=== PATIENT | male | born 1950 ===

== ENCOUNTER 2021-05-26 13:39 | Outpatient (REF) | payer OTHER, SELFPAY ==
[2021-05-26 15:02] LABS: Syphilis Screen Nonreactive (Nonreactive)
[2021-05-26 15:19] LABS: Folate 10.8 ng/mL (> or = 4.0); Vitamin B12 319 pg/mL (200-900)
[2021-05-27 13:37] LABS: Lyme Abs Screen <0.90 index
== END 2021-05-26 13:40 | disposition home or self-care (01) ==
LOC: HO.LAB 13:39
PROVIDERS: PCP Internal Medicine; Visit Provider Psychiatry & Neurology Neurology
DX: G30.9 Alzheimer's disease, unspecified (principal)
CPT/HCPCS: 36415; 82607; 82746; 86617; 86618; 86780

== ENCOUNTER → 2023-05-08 12:58 | Outpatient (BNVA) | payer OTHER, SELFPAY | PROVIDERS: PCP Internal Medicine; Visit Provider Psychiatry & Neurology Neurology ==

== ENCOUNTER 2023-08-17 08:26 | Outpatient (AMB) | payer OTHER, SELFPAY ==
--- NOTE | 2023-08-17 08:36 | A.OFFVIS_ITS ---
Intake Vital Signs 08/17/23 08:41 Weight 162 lb 6 oz BP 110/58 L Blood Pressure Location Lt brachial Position Sitting Pulse 93 Pulse Source Pulse Oximeter Pulse Oximetry (%) 98 Oxygen Delivery Method Room Air Intake Visit Reasons: 2m f/u Memory Issues/Tremors - Ok per MD Intake Note: F/U Memory and Tremors [place] Tanner Required: No Allergies ibuprofen [From Advil] Allergy (Severe, Verified 08/17/23 08:37) swallowing alcohol Allergy (Unknown, Verified 08/17/23 08:37) Unknown aspirin [Percodan] Allergy (Unknown, Verified 08/17/23 08:37) Unknown oxycodone [Percodan] Allergy (Unknown, Verified 08/17/23 08:37) Unknown Medication List - Last Reconciled 08/17/23 by Darling Heart MD atorvastatin (Lipitor) 20 mg PO DAILY bupropion HCl (Wellbutrin XL) 150 mg PO QAM carbidopa-levodopa 25-100 mg 0.5 tabs PO TID cholecalciferol (vitamin D3) (Vitamin D3) 25 mcg PO DAILY donepezil 10 mg PO DAILY levothyroxine 25 mcg PO DAILY nitroglycerin 0.4 mg sublingual Q5M PRN polyethylene glycol 3350 (Miralax) 17 grams PO DAILY tacrolimus 0.1% 1 appl topical BID HPI HPI Comments History of Present Illness Details 72y/o right handed male comes for follow up of cognitive impairment. He started wellbutrin 1 month ago- his tremors are worse.It helps his anxiety. He did not try sinemet yet. His memory is better He is able to follow instructions in his [employer] classes. Previous history- He is transferring his care from Dr. Arriola. He started having short term memory issues 3-4 years ago. He had a neuropsyhc at that which was c/w Mild cognitive impairment. He was started on donepezil 10mg qd. He could not tolerate galantamine- developed tremors. He also started with leg tremors which was thought to be due to galantamine. The tremors did not resolve when he was switched to donepezil. The tremors are mostly in his LE. now he has some tremors and mostly in his right. He The tremors are mostly at rest. His speech is softer, drools, handwriting is worse, has difficulty dressing . he has difficulty with fine motor coordination. He has rouble getting in the bed. His walking is slower, stooped. No recent falls. He recently had an episode of dizziness ( spinning)and fell( around 10 PM). No loss of consciousness. since then he feels like he is not right in space.He thinks he has sinus issues and is causing his vertigo. He takes miralax for constipation. No double vision. His recent MRI - mild white matter hyperintense intensities. Neuropsych eval- [facility] He had word finding difficulty.He has vivid dreams and acts out for over 4 years . He has mild depression and anxiety [facility] Medical History (Updated 08/17/23 @ 09:17 by Darling Heart MD) Anxiety REM behavioral disorder Parkinsonism MCI (mild cognitive impairment) CAD (coronary artery disease) Constipation IBS (irritable bowel syndrome) Combined hyperlipidemia Hypothyroidism Hernia Surgical History H/O heart artery stent Family History Father Diabetes Stomach cancer Heart disease Mother Dementia Sister Diabetes Social History Alcohol intake: never Patient Tobacco Use Status: Never used Tobacco Use of substances other than those prescribed or required for medical reasons: No Physical Exam Vital Signs: Last Vital Signs Pulse 93 08/17/23 08:41 BP 110/58 L 08/17/23 08:41 Pulse Ox 98 08/17/23 08:41 Oxygen Delivery Method Room Air 08/17/23 08:41 Const Orientation/consciousness: patient oriented x3 Neuro Other: moderately decreased facial expression decreased blink Right LE rest tremors Cog wheel rigidity - 3+ right , left 2 + FFM and foot taps decreased yanni R>L Hypophonia Gait- stooped , small steps , decreased arm swings yanni R>L General: patient oriented x3, moves all extremities and no focal motor deficits Cranial nerves: Yes Bilaterally intact EOM present, Yes Nystagmus not present, Yes Normal facial strength present and Yes Midline tongue present Gait exam (Neuro): Other gait observations present Motor exam (neuro): 5/5 motor strength present throughout Deep tendon reflexes (DTR's): Right triceps reflex intensity grade: 1+, Left triceps reflex intensity grade: 1+, Rt Biceps (C5, C6): 1+, Left biceps reflex intensity grade: 1+, Right brachioradialis reflex intensity grade: 1+, Left brachioradialis reflex intensity grade: 1+, Right patellar reflex intensity grade: 1+ and Left patellar reflex intensity grade: 1+ Coordination: [id number] test normal Psych Speech and movement: Slowed movement present (Neuro) Affect: Anxious affect present Assessment & Plan Assessment & Plan (1) Parkinsonism: Code(s): G20 - Parkinson's disease (2) REM behavioral disorder: Code(s): G47.52 - REM sleep behavior disorder (3) MCI (mild cognitive impairment): Code(s): G31.84 - Mild cognitive impairment of uncertain or unknown etiology Plan Reviewed his neuropsyhc evals and Dr. Arriola s notes. Retrial melatonin- 3-10 mgqhs I will trial him on sinemet 25/100 1/2 tab tid ( never tried it after his last visit) HANG scan Increase donepezil 10mg qd Exposure to agent orange [facility] Orders: Orders DaTscan Today G20 - Parkinson's disease Referrals Psychiatry Referral F41.9 - Anxiety disorder, unspecified Medications: Changed From donepezil 5 mg PO DAILY To donepezil 10 mg PO DAILY 30 tabs 1RF Coding Level of Care Code Est Pt Level 4 (00260) Diagnoses Parkinsonism G20 REM behavioral disorder G47.52 MCI (mild cognitive impairment) G31.84
[2023-08-17 08:41] VITALS: BP 110/58; PULSE 93; O2SAT 98
== END 2023-08-17 09:24 | disposition home or self-care (01) ==
PROVIDERS: PCP Internal Medicine; Visit Provider Psychiatry & Neurology Neurology
DX: G20 Parkinson's disease (principal); G47.52 REM sleep behavior disorder; G31.84 Mild cognitive impairment of uncertain or unknown etiology
CPT/HCPCS: 99214

== ENCOUNTER → 2023-08-17 08:26 | Outpatient (BNVA) | payer OTHER, SELFPAY | PROVIDERS: PCP Internal Medicine; Visit Provider Psychiatry & Neurology Neurology | DX: G20 Parkinson's disease (principal); G47.52 REM sleep behavior disorder ==

== ENCOUNTER 2023-12-12 13:53 | Outpatient (AMB) | payer OTHER, SELFPAY ==
--- NOTE | 2023-12-12 13:56 | A.OFFVIS_ITS ---
Intake Vital Signs 12/12/23 13:57 Height 5 ft 4 in Weight 162 lb 6 oz BMI 27.9 BP 108/72 Blood Pressure Location Rt brachial Position Sitting Respiration 17 Pulse 83 Pulse Source Pulse Oximeter Pulse Oximetry (%) 98 Oxygen Delivery Method Room Air Intake Visit Reasons: 6m f/u Memory Issues/Tremors - Confirmed Intake Note: Pt presents to the office for a 6 month follow up for tremors and memory disturbances. 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 Required: No Allergies ibuprofen [From Advil] Allergy (Severe, Verified 12/12/23 13:57) swallowing alcohol Allergy (Unknown, Verified 12/12/23 13:57) Unknown aspirin [Percodan] Allergy (Unknown, Verified 12/12/23 13:57) Unknown oxycodone [Percodan] Allergy (Unknown, Verified 12/12/23 13:57) Unknown Medication List - Last Reconciled 12/12/23 by Darling Heart MD atorvastatin (Lipitor) 20 mg PO DAILY bupropion HCl (Wellbutrin XL) 150 mg PO QAM carbidopa-levodopa 25-100 mg 0.5 tabs PO TID cholecalciferol (vitamin D3) (Vitamin D3) 25 mcg PO DAILY donepezil 10 mg PO DAILY levothyroxine 25 mcg PO DAILY nitroglycerin 0.4 mg sublingual Q5M PRN polyethylene glycol 3350 (Miralax) 17 grams PO DAILY tacrolimus 0.1% 1 appl topical BID HPI HPI Comments History of Present Illness Details 73y/o right handed male comes for follow up of cognitive impairment. His feels his tremors are worse. His hand coordination is worse. He is on wellbutrin and .It helps his anxiety. He did not try sinemet yet. His memory is same. He is taking parkinsons classes at [facility] He is able to follow instructions in his [employer] classes. His motor coordination like getting out of car is difficult. His reports that he is hypersexual - wanting to have sex often. Previous history- He is transferring his care from Dr. Arriola. He started having short term memory issues 3-4 years ago. He had a neuropsyhc at that which was c/w Mild cognitive impairment. He was started on donepezil 10mg qd. He could not tolerate galantamine- developed tremors. He also started with leg tremors which was thought to be due to galantamine. The tremors did not resolve when he was switched to donepezil. His recent MRI - mild white matter hyperintense intensities. Neuropsych eval- [facility] Medical History (Updated 12/12/23 @ 14:20 by Darling Heart MD) Parkinson's disease without dyskinesia, without mention of fluctuations Anxiety REM behavioral disorder Parkinsonism MCI (mild cognitive impairment) CAD (coronary artery disease) Constipation IBS (irritable bowel syndrome) Combined hyperlipidemia Hypothyroidism Hernia Surgical History H/O heart artery stent Family History Father Diabetes Stomach cancer Heart disease Mother Dementia Sister Diabetes Social History Alcohol intake: never Patient Tobacco Use Status: Never used Tobacco Physical Exam Vital Signs: Last Vital Signs Pulse 83 12/12/23 13:57 Resp 17 12/12/23 13:57 BP 108/72 12/12/23 13:57 Pulse Ox 98 12/12/23 13:57 Oxygen Delivery Method Room Air 12/12/23 13:57 BMI result Body Mass Index 27.9 Const Orientation/consciousness: patient oriented x3 Neuro Other: moderately decreased facial expression decreased blink Right LE rest tremors Cog wheel rigidity - 3+ right , left 2 + FFM and foot taps decreased yanni R>L Hypophonia Gait- stooped , small steps , decreased arm swings yanni R>L General: patient oriented x3, moves all extremities and no focal motor deficits Cranial nerves: Yes Bilaterally intact EOM present, Yes Nystagmus not present, Yes Normal facial strength present and Yes Midline tongue present Gait exam (Neuro): Other gait observations present Motor exam (neuro): 5/5 motor strength present throughout Coordination: [id number] test normal Psych Speech and movement: Slowed movement present (Neuro) Affect: Anxious affect present Assessment & Plan Assessment & Plan (1) Parkinsonism: Code(s): G20 - Parkinson's disease (2) REM behavioral disorder: Code(s): G47.52 - REM sleep behavior disorder (3) MCI (mild cognitive impairment): Code(s): G31.84 - Mild cognitive impairment of uncertain or unknown etiology Plan Reviewed his neuropsyhc josé miguel and Dr. Arriola s notes. Melatonin- 3-10 mgqhs Increase sinemet 25/100 1 tab tid ( never tried it after his last visit) HANG scan - decreased uptake in yanni basal ganglia c/w parkinsonism donepezil 10mg qd Exposure to agent orange [facility] Orders: Orders OT Evaluation and Treatment Today G20.A1 - Parkinson's disease without dyskinesia, without mention of fluctuations Medications: New [four pronged cane] As directed 1 ea 0RF parkinsons G20.A1 - Parkinson's disease without dyskinesia, without mention of fluctuations Changed From carbidopa-levodopa 25-100 mg 0.5 tabs PO TID 90 tabs 2RF To carbidopa-levodopa 25-100 mg 1 tab PO TID 90 tabs 2RF Coding Level of Care Code Est Pt Level 4 (95551) Diagnoses Parkinsonism G20 REM behavioral disorder G47.52 MCI (mild cognitive impairment) G31.84
[2023-12-12 13:57] VITALS: BP 108/72; PULSE 83; RESP 17; O2SAT 98; BMI 27.9
== END 2023-12-12 14:35 | disposition home or self-care (01) ==
PROVIDERS: PCP Internal Medicine; Visit Provider Psychiatry & Neurology Neurology
DX: G20.C Parkinsonism, unspecified (principal); G47.52 REM sleep behavior disorder; G31.84 Mild cognitive impairment of uncertain or unknown etiology
CPT/HCPCS: 99214

== ENCOUNTER → 2023-12-12 13:53 | Outpatient (BNVA) | payer OTHER, SELFPAY | PROVIDERS: PCP Internal Medicine; Visit Provider Psychiatry & Neurology Neurology | DX: G47.52 REM sleep behavior disorder (principal); F41.9 Anxiety disorder, unspecified; G31.84 Mild cognitive impairment of uncertain or unknown etiology ==

== ENCOUNTER 2024-04-16 15:49 | Outpatient (AMB) | payer OTHER, SELFPAY ==
--- NOTE | 2024-04-16 15:51 | MHC.OFFVIS ---
Vital Signs 04/16/24 15:52 Height 5 ft 4 in Weight 157 lb 6 oz BMI 27.0 BP 110/70 Blood Pressure Location Rt brachial Position Sitting Respiration 16 Pulse 78 Pulse Source Pulse Oximeter Pulse Oximetry (%) 98 Oxygen Delivery Method Room Air Intake Visit Reasons: 4 mo f/u - LVM w/add Intake Note: Pt presents for a 4 month follow up for MCI. [employer] T[employer] Helper Required: No Allergies ibuprofen [From Advil] Allergy (Severe, Verified 04/16/24 15:52) swallowing alcohol Allergy (Unknown, Verified 04/16/24 15:52) Unknown aspirin [Percodan] Allergy (Unknown, Verified 04/16/24 15:52) Unknown oxycodone [Percodan] Allergy (Unknown, Verified 04/16/24 15:52) Unknown Medication List - Last Reconciled 04/16/24 by Darling Heart MD bupropion HCl XL (Wellbutrin XL) 150 mg PO QAM carbidopa-levodopa 25-100 mg 1 tab PO TID cholecalciferol (vitamin D3) (Vitamin D3) 25 mcg PO DAILY donepezil 10 mg PO DAILY [four pronged cane As directed] levothyroxine 25 mcg PO DAILY nitroglycerin 0.4 mg sublingual Q5M PRN polyethylene glycol 3350 (Miralax) 17 grams PO DAILY rosuvastatin 5 mg PO DAILY tacrolimus 0.1% 1 appl topical BID HPI Comments Details: 73y/o right handed male comes for follow up of cognitive impairment. His cognition is stable. He feel he is not motivated carbidopa/levodopa has helped with tremors. He still has tremors when he is anxious His memory is same. He is taking parkinsons classes at [facility] He is able to follow instructions in his [employer] classes. Previous history- He is transferring his care from Dr. Arriola. He started having short term memory issues 3-4 years ago. He had a neuropsyhc at that which was c/w Mild cognitive impairment. He was started on donepezil 10mg qd. He could not tolerate galantamine- developed tremors. He also started with leg tremors which was thought to be due to galantamine. The tremors did not resolve when he was switched to donepezil. His recent MRI - mild white matter hyperintense intensities. Neuropsych eval- [facility] Medical History Parkinson's disease without dyskinesia, without mention of fluctuations Anxiety REM behavioral disorder Parkinsonism MCI (mild cognitive impairment) CAD (coronary artery disease) Constipation IBS (irritable bowel syndrome) Combined hyperlipidemia Hypothyroidism Hernia Surgical History H/O heart artery stent Family History Father Diabetes Stomach cancer Heart disease Mother Dementia Sister Diabetes Social History Alcohol intake: never Patient Tobacco Use Status: Never used Tobacco Physical Exam Vital Signs: Last Vital Signs Pulse 78 04/16/24 15:52 Resp 16 04/16/24 15:52 BP 110/70 04/16/24 15:52 Pulse Ox 98 04/16/24 15:52 Oxygen Delivery Method Room Air 04/16/24 15:52 BMI result Body Mass Index 27.0 Const Orientation/consciousness: patient oriented x3 Neuro Other: moderately decreased facial expression decreased blink Right LE rest tremors Cog wheel rigidity - 3+ right , left 2 + FFM and foot taps decreased yanni R>L Hypophonia Gait- stooped , small steps , decreased arm swings yanni R>L General: patient oriented x3, moves all extremities and no focal motor deficits Cranial nerves: Yes Bilaterally intact EOM present, Yes Nystagmus not present, Yes Normal facial strength present and Yes Midline tongue present Gait exam (Neuro): Other gait observations present Motor exam (neuro): 5/5 motor strength present throughout Coordination: [id number] test normal Psych Speech and movement: Slowed movement present (Neuro) Affect: Anxious affect present Assessment & Plan Assessment & Plan (1) Parkinsonism: Code(s): G20 - Parkinson's disease Category: Medical (2) REM behavioral disorder: Code(s): G47.52 - REM sleep behavior disorder Category: Medical (3) MCI (mild cognitive impairment): Code(s): G31.84 - Mild cognitive impairment of uncertain or unknown etiology Category: Medical (4) Parkinson's disease without dyskinesia, without mention of fluctuations: Code(s): G20.A1 - Parkinson's disease without dyskinesia, without mention of fluctuations Category: Medical Plan Melatonin- 3-10 mgqhs sinemet 25/100 1 tab tid HANG scan - decreased uptake in yanni basal ganglia c/w parkinsonism donepezil 10mg qd Exposure to agent orange [facility] Orders: Orders PT Evaluation and Treatment Today G20 - Parkinson's disease Coding Level of Care Code Est Pt Level 4 (68420) Diagnoses Parkinsonism G20 REM behavioral disorder G47.52 MCI (mild cognitive impairment) G31.84 Parkinson's disease without dyskinesia, without mention of fluctuations G20.A1
[2024-04-16 15:52] VITALS: BP 110/70; PULSE 78; RESP 16; O2SAT 98; BMI 27.0
== END 2024-04-16 16:20 | disposition home or self-care (01) ==
PROVIDERS: PCP Internal Medicine; Visit Provider Psychiatry & Neurology Neurology
DX: G20.A1 Parkinson's disease without dyskinesia, without mention of fluctuations (principal); G47.52 REM sleep behavior disorder
CPT/HCPCS: 99214

== ENCOUNTER → 2024-04-16 15:49 | Outpatient (BNVA) | payer OTHER, SELFPAY | PROVIDERS: PCP Internal Medicine; Visit Provider Psychiatry & Neurology Neurology ==

== ENCOUNTER 2024-10-15 12:56 | Outpatient (AMB) | payer OTHER, SELFPAY ==
[2024-10-15 13:04] VITALS: BP 124/78; BMI 26.8
--- NOTE | 2024-10-15 13:04 | A.OFFVIS_ITS ---
Vital Signs 10/15/24 13:04 Height 5 ft 4 in Weight 156 lb BMI 26.8 BP 124/78 Blood Pressure Location Rt brachial Position Sitting Intake Visit Reasons: 6mon follow up Intake Note: Patient presents for follow up appointment Allergies ibuprofen [From Advil] Allergy (Severe, Verified 10/15/24 13:06) swallowing alcohol Allergy (Unknown, Verified 10/15/24 13:06) Unknown aspirin [Percodan] Allergy (Unknown, Verified 10/15/24 13:06) Unknown oxycodone [Percodan] Allergy (Unknown, Verified 10/15/24 13:06) Unknown Medication List - Last Reconciled 10/15/24 by Darling Heart MD bupropion HCl XL (Wellbutrin XL) 150 mg PO QAM carbidopa-levodopa 25-100 mg 1 tab PO TID cholecalciferol (vitamin D3) (Vitamin D3) 25 mcg PO DAILY donepezil 10 mg PO DAILY [four pronged cane As directed] levothyroxine 25 mcg PO DAILY nitroglycerin 0.4 mg sublingual Q5M PRN polyethylene glycol 3350 (Miralax) 17 grams PO DAILY rosuvastatin 5 mg PO DAILY tacrolimus 0.1% 1 appl topical BID HPI Comments Details: 74y/o right handed male comes for follow up of cognitive impairment. His cognition fluctuates.He reports some word finding difficulty. He feel he is not motivated carbidopa/levodopa has helped with tremors. He still has tremors when he is anxious He is taking parkinsons classes at [facility] He is able to follow instructions in his [employer] classes. Previous history- He is transferring his care from Dr. Arriola. He started having short term memory issues 3-4 years ago. He had a neuropsyhc at that which was c/w Mild cognitive impairment. He was started on donepezil 10mg qd. He could not tolerate galantamine- developed tremors. He also started with leg tremors which was thought to be due to galantamine. The tremors did not resolve when he was switched to donepezil. His recent MRI - mild white matter hyperintense intensities. Neuropsych eval- [facility] Medical History Parkinson's disease without dyskinesia, without mention of fluctuations Anxiety REM behavioral disorder Parkinsonism MCI (mild cognitive impairment) CAD (coronary artery disease) Constipation IBS (irritable bowel syndrome) Combined hyperlipidemia Hypothyroidism Hernia Surgical History H/O heart artery stent Family History Father Diabetes Stomach cancer Heart disease Mother Dementia Sister Diabetes Social History Alcohol intake: never Patient Tobacco Use Status: Never used Tobacco Physical Exam Vital Signs: Last Vital Signs BP 124/78 10/15/24 13:04 BMI result Body Mass Index 26.8 Const Orientation/consciousness: patient oriented x3 Neuro Other: mild decreased facial expression decreased blink Jose Raul LE rest tremors Cog wheel rigidity - 3+ right , left 2 + FFM and foot taps decreased jose raul R>L speech - normal Gait- stooped , small steps , decreased arm swings jose raul R>L General: patient oriented x3, moves all extremities and no focal motor deficits Cranial nerves: Yes Bilaterally intact EOM present, Yes Nystagmus not present, Yes Normal facial strength present and Yes Midline tongue present Gait exam (Neuro): Other gait observations present Motor exam (neuro): 5/5 motor strength present throughout Coordination: [id number] test normal Psych Speech and movement: Slowed movement present (Neuro) Affect: Anxious affect present Assessment & Plan Assessment & Plan (1) Parkinsonism: Code(s): G20 - Parkinson's disease Category: Medical Qualifiers: 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 Qualified Code(s): 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 (2) REM behavioral disorder: Code(s): G47.52 - REM sleep behavior disorder Category: Medical (3) MCI (mild cognitive impairment): Code(s): G31.84 - Mild cognitive impairment of uncertain or unknown etiology Category: Medical (4) Parkinson's disease without dyskinesia, without mention of fluctuations: Code(s): G20.A1 - Parkinson's disease without dyskinesia, without mention of fluctuations Category: Medical Plan Melatonin- 3-10 mgqhs sinemet 25/100 1 tab tid HANG scan - decreased uptake in jose raul basal ganglia c/w parkinsonism donepezil 10mg qd He has h/o exposure to Agent [place] Coding Level of Care Code Est Pt Level 4 (45620) Complex EM visit Add On G2211 Diagnoses 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
== END 2024-10-15 13:32 | disposition home or self-care (01) ==
PROVIDERS: PCP Internal Medicine; Visit Provider Psychiatry & Neurology Neurology
DX: G21.2 Secondary parkinsonism due to other external agents (principal); G47.52 REM sleep behavior disorder; G31.84 Mild cognitive impairment of uncertain or unknown etiology; G20.A1 Parkinson's disease without dyskinesia, without mention of fluctuations
CPT/HCPCS: 99214; G2211

== ENCOUNTER → 2024-10-15 12:56 | Outpatient (BNVA) | payer OTHER, SELFPAY | PROVIDERS: PCP Internal Medicine; Visit Provider Psychiatry & Neurology Neurology ==

== ENCOUNTER 2025-05-09 10:16 | Outpatient (AMB) | payer OTHER, SELFPAY ==
--- NOTE | 2025-05-09 10:22 | A.OFFVIS_ITS ---
Vital Signs 05/09/25 10:23 Height 5 ft 4 in Weight 148 lb 8 oz BMI 25.5 BP 98/58 L Blood Pressure Location Rt brachial Position Sitting Pulse 76 Pulse Source Pulse Oximeter Pulse Oximetry (%) 95 Oxygen Delivery Method Room Air Intake Visit Reasons: follow up RESCHED Intake Note: Patient presents for follow up parkinson's Livestock Counter Required: No Accompanied by: Spouse Allergies ibuprofen [From Advil] Allergy (Severe, Verified 05/09/25 10:29) swallowing alcohol Allergy (Unknown, Verified 05/09/25 10:29) Unknown aspirin [Percodan] Allergy (Unknown, Verified 05/09/25 10:29) Unknown oxycodone [Percodan] Allergy (Unknown, Verified 05/09/25 10:29) Unknown Medication List - Last Reconciled 05/09/25 by Darling Heart MD bupropion HCl XL (Wellbutrin XL) 150 mg PO QAM carbidopa-levodopa 25-100 mg 1 tab PO TID cholecalciferol (vitamin D3) (Vitamin D3) 25 mcg PO DAILY donepezil 10 mg PO DAILY [four pronged cane As directed] levothyroxine 25 mcg PO DAILY nitroglycerin 0.4 mg sublingual Q5M PRN polyethylene glycol 3350 (Miralax) 17 grams PO DAILY rosuvastatin 5 mg PO DAILY HPI Comments Details: 74y/o right handed male comes for follow up of cognitive impairment. His feels he is worse . His slower, his gait and posture has worsened. Tremors are same. He has poor depth perception . No falls Cognition is worse His cognition fluctuates.He reports some word finding difficulty.He has trouble using his computer carbidopa/levodopa has helped with tremors. He still has tremors when he is anxious He is taking parkinsons classes at [facility] He is able to follow instructions in his [employer] classes. Previous history- He is transferring his care from Dr. Arriola. He started having short term memory issues 3-4 years ago. He had a neuropsyhc at that which was c/w Mild cognitive impairment. He was started on donepezil 10mg qd. He could not tolerate galantamine- developed tremors. He also started with leg tremors which was thought to be due to galantamine. The tremors did not resolve when he was switched to donepezil. His recent MRI - mild white matter hyperintense intensities. [facility]psych eval- [facility] Medical History Parkinson's disease without dyskinesia, without mention of fluctuations Anxiety REM behavioral disorder Parkinsonism MCI (mild cognitive impairment) CAD (coronary artery disease) Constipation IBS (irritable bowel syndrome) Combined hyperlipidemia Hypothyroidism Hernia Surgical History Hx of cataract surgery H/O heart artery stent Family History Father Diabetes Stomach cancer Heart disease Mother Dementia Sister Diabetes Social History Alcohol intake: never Patient Tobacco Use Status: Never used Tobacco Physical Exam Vital Signs: Last Vital Signs Pulse 76 05/09/25 10:23 BP 98/58 L 05/09/25 10:23 Pulse Ox 95 05/09/25 10:23 Oxygen Delivery Method Room Air 05/09/25 10:23 BMI result Body Mass Index 25.5 Const Orientation/consciousness: patient oriented x3 Neuro Other: mild decreased facial expression decreased blink Jose Raul LE rest tremors Cog wheel rigidity - 3+ right , left 2 + FFM and foot taps decreased jose raul R>L speech - normal Gait- stooped , small steps , decreased arm swings jose raul R>L General: patient oriented x3, moves all extremities and no focal motor deficits Cranial nerves: Yes Bilaterally intact EOM present, Yes Nystagmus not present, Yes Normal facial strength present and Yes Midline tongue present Gait exam (Neuro): Other gait observations present Motor exam (neuro): 5/5 motor strength present throughout Coordination: [id number] test normal Psych Speech and movement: Slowed movement present (Neuro) Affect: Anxious affect present Assessment & Plan Assessment & Plan (1) 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 Code(s): G20 - Parkinson's disease Category: Medical Qualifiers: 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 Qualified Code(s): 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 (2) REM behavioral disorder: Code(s): G47.52 - REM sleep behavior disorder Category: Medical (3) MCI (mild cognitive impairment): Code(s): G31.84 - Mild cognitive impairment of uncertain or unknown etiology Category: Medical (4) Parkinson's disease without dyskinesia, without mention of fluctuations: Code(s): G20.A1 - Parkinson's disease without dyskinesia, without mention of fluctuations Category: Medical Qualifiers: Fluctuating manifestations: without fluctuating manifestations Qualified Code(s): G20.A1 - Parkinson's disease without dyskinesia, without mention of fluctuations Plan Melatonin- 3-10 mgqhs Increase sinemet 25/100 1 tab qid HANG scan - decreased uptake in jose raul basal ganglia c/w parkinsonism donepezil 10mg qd He has h/o exposure to Trichloro ethylene Medications: Changed From carbidopa-levodopa 25-100 mg 1 tab PO TID 270 tabs 0RF To carbidopa-levodopa 25-100 mg 1 tab PO QID 360 tabs 0RF Coding Level of Care Code Est Pt Level 4 (74539) Complex EM visit Add On G2211 Diagnoses 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
[2025-05-09 10:23] VITALS: BP 98/58; PULSE 76; O2SAT 95; BMI 25.5
--- OUTSIDE RECORDS SUMMARY | 2025-05-09 11:13 | XMS_ITS | Encounter Summary ---
Author Name [facility] Organization [facility] Address [address] [place] [id number] Care Team Providers Care Field Map Editor Name Role Phone AMARILIS VALENTINE Primary Care Provider Unavailabl e Selected Encounter This section includes the information on record at [place] for the Encounter. Date/Time Encounter Type Encounter Description Reason Provider Source May 01, 2025 02:30 PM OFFICE O/P EST HI 40 MIN PRIMARY CARE/MEDICINE ICD-10-CM G20.A1 Parkinson's dis w/o dyskinesia, w/o mention of fluctuations AMARILIS VALENTINE Encounter Template Text not used by [place] Assessments - Encounter Diagnoses This section includes the primary and secondary diagnoses documented for the Encounter. Date/Time Primary/Secondary Diagnosis Diagnosis Name Provider Source May 01, 2025 03:38 PM PRIMARY Parkinson's dis w/o dyskinesia, w/o mention of fluctuations AMARILIS VALENTINE May 01, 2025 03:38 PM SECONDARY Athscl heart disease of [place] coronary artery w/o ang pctrs AMARILIS VALENTINE May 01, 2025 03:38 PM SECONDARY Contact with and exposure to other hazardous substances AMARILIS VALENTINE Plan of Treatment: Future Appointments (+ 6 months) and Future Tests (+/- 45 days) The Plan of Treatment section includes future care activities for the patient from all [place] treatmentfacilities. This section includes future appointments and future orders which are active, pending or scheduled. Future Appointments This section includes appointments that were scheduled to occur 6 months from the date of the Encounter, up to a maximum of 20 appointments. The data comes from all [place] treatment facilities. Appointment Date/Time Appointment Type Appointme nt Facility Name May 05, 2025 09:00 AM AMBULATORY - MEDICINE [facility] [facility] May 12, 2025 11:00 AM AMBULATORY - REHAB MEDICIN [facility] May 26, 2025 01:30 PM AMBULATORY - SURGERY [facility] Aug 28, 2025 02:00 PM AMBULATORY - MEDICINE [facility] Active, Pending, and Scheduled Orders This section includes a listing of several types of active, pending, and scheduled orders, including clinic medications orders, diagnostic test orders, procedure orders and consult orders; where the start date of the order is 45 days before the date of the Encounter or 45 days after the date of theEncounter. The data comes from all [place] treatment facilities. Test Date/Time Test Type Test Details Facility Name May 01, 2025 03:01 PM Consult Order OCCUPATION AL THERAPY OUTPT [facility] May 01, 2025 03:31 PM Consult Order COMMUNITY CARE-[facility] SKILLED HOME C[facility] Vital Signs: All taken on the encounter date This section contains inpatient and outpatient Vital Signs collected on the date of the Encounter. Date/Time Temperature Pulse Blood Pressure Respiratory Rate SP02 Pain Height Weight Body Mass Index Source May 01, 2025 02:39 PM 97.6 F 79 /min 97/64 mm[Hg] 97 % 149 lb [facility] IELD Advance Directives: All historical and current Section Date Range: From patient's date of to the date document was created. This section includes ALL of a patient's completed or amended [place] Advance and Rescinded Directives. The entries below indicate that a directive exists for the patient, but an actual copy is not included with this document. The data comes from all [place] facilities. Date Advance Directives Provider Source April 03, 2025 ADVANCE DIRECTIVE LUCIANO CANTU [facility] Encounter Notes: All associated encounter notes This section contains the clinical notes associated to the Encounter. Date/Time Encounter Note(s) Provider Source May 01, 2025 03:38 PM LETTERS: LOCAL TITLE: PATIENT LETTER (T) STANDARD TITLE: LETTERS DATE OF NOTE: MAY 01, 2025@15:38 ENTRY DATE: MAY 01, 2025@15:38:44 AUTHOR: AMARILIS VALENTINE COSIGNER: URGENCY: STATUS: COMPLETED DEPARTMENT OF [facility] Toll Free Number Primary Care Telephone Assistance can be reached at extension [address] [place], [place] [address]ton Mental Health scheduling can be reached at extension [phone] [place] [facility] scheduling can be reached at ext [phone] SKY DICKINSON JR [address] [place], [place], [address] [facility] [place] [facility], Sky Morejon (last four 2084 and 1950) has has a diagnosis of Parkinson's Disease since 2020. He is managed and medicated by a Neurologist. Mr. Dickinson is to be regarded as totally unemployable. Parkinson's Disease is a permanent and irreversible condtion. AMARILIS VALENTINE Physician Cemetery Workers Supervisor Sincerely, Your Primary Care Team [facility] [address] [facility] [address] [place] [address] [place] [address] [phone] [facility] [address] [place] [address] [place] [address] [phone] [facility] [address] [facility] [place] [address] [place] [address] [phone] AMARILIS VALENTINE May 01, 2025 02:30 PM PHYSICIAN BRANDY Patrick NOTE: LOCAL TITLE: PA NOTE STANDARD TITLE: PHYSICIAN SIENE MAKER NOTE DATE OF NOTE: MAY 01, 2025@14:30 ENTRY DATE: MAY 01, 2025@14:30:18 AUTHOR: AMARILIS VALENTINE EXP COSIGNER: URGENCY: STATUS: COMPLETED S - 74 y/o M Allergy: NKAM MEDS: see below CC: new pt initial eval and he are here because need help at home; pt. has recent dx PD (dx in 2020) HPI: see Problem List PMH: neg CAD/AMI (h/o ACS) neg HTN neg PVD or PAD neg COPD neg Asthma neg Hepatic Disorders neg Renal Disorders neg CVA/TIA neg Seizures +Parkinson Disease some Associated Forgetfulness/Early Demetia neg Chronic Coagulopathy neg PUD, UGI Bleed neg Anemia, Excess Bleeding, Easy Bruising neg Blood Transfusions neg DM (may be hyperglycemic) +Hypothyroidism neg BPH any Signif Infectious Diseases? 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[employer] - [employer] WIA - never TBI - no [place]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; 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 [employer] SH: O - coop A&Ox3 NAD W-N/H/D VS: Stable HEENT: Eyes - PERRL, anicteric OU Oropharynx - no petechiae, uvula midline NECK: no adeno no bruits PUL: Resp full, reg, unlabored; CTA B/L COR: RRR, no M ABD: no distention no tenderness RECTAL: defer EXT: no LLE or calf tenderness INTEG: NL texture/turgor NAILS: no clubbing no spooning LABS: not needed now A/P - 1) Normotensive 2) CAD Stable - never TN (but hx ACS and stented) 3) Hypercholesterolemia - cont ASA - cont Crestor - has Nitro, SL for prn use (never needs any) 4) PD - Dx 2020; Progresive Sx (memory loss, lower-extrmity weakness) Never CVA/TIA - sees Private Neuro - on Sinemet - CON: Home PT Home OT 5) Hyperglycemia 6) Coagulopathy - No 7) Fall Risk: Yes 8) Urinary Incontinence: No MEDS: Reconciled - has list RTC SEP 20 - sooner prn Fast Non-Fast Labs Few Days Before Next Visit Medication Reconciliation: Outpatient: Has the patient been taking medications as documented in the EMLR? YES: The patient has been taking medications as documented in the EMLR. Essential Medication List for Review used to complete this medication reconciliation. INCLUDED IN THIS LIST: Alphabetical list of active outpatient prescriptions dispensed from this [place] (local) and dispensed from another [place] or DoD facility (remote) as well as inpatient orders (local, pending and active), local clinic medications, locally documented non-VA medications, and local prescriptions that have or been discontinued in the past 90 days. - All changes in medications, including all non-VA/Herbal/OTC medications were entered into CPRS. Changes: nt - If there were any medications the patient should no longer take, they were discontinued. - The patient/caregiver was instructed to update this list, discard old lists, and take this list to the next appointment, whether with a VA or non-VA provider. /michelle/ AMARILIS VALENTINE PA-C STAFF PHYSICIAN SIENE MAKER Signed: 05/01/2025 15:38 AMARILIS VALENTINE
== END 2025-05-09 11:20 | disposition home or self-care (01) ==
LOC: HO.HSMS 10:17
PROVIDERS: PCP Internal Medicine; Visit Provider Psychiatry & Neurology Neurology
DX: G21.2 Secondary parkinsonism due to other external agents (principal); G47.52 REM sleep behavior disorder; G31.84 Mild cognitive impairment of uncertain or unknown etiology; G20.A1 Parkinson's disease without dyskinesia, without mention of fluctuations
CPT/HCPCS: 99214; G2211

== ENCOUNTER → 2025-05-09 10:16 | Outpatient (BNVA) | payer OTHER, SELFPAY | PROVIDERS: PCP Internal Medicine; Visit Provider Psychiatry & Neurology Neurology ==

== ENCOUNTER 2025-08-11 08:20 | Outpatient (REF) | payer OTHER, SELFPAY ==
[2025-08-11 13:48] LABS: MANUAL DIFF FLAG NO
[2025-08-11 13:52] LABS: Hematocrit 44.1 % (42.0-52.0); Hemoglobin 14.8 g/dl (14.0-18.0); Imm Gran Abs Auto 0.03 X10*3/uL (0.00-0.03); Imm Gran Pct Auto 0.5 % (0.0-0.4); Lymphocytes Absolute Auto 1.4 X10*3/uL (1.2-4.9); Mean Corpuscular HGB Conc 33.6 g/dl (31.0-36.0); Mean Corpuscular Hemoglobin 31.4 pg (27.0-33.0); Mean Corpuscular Volume 93.4 fL (80.0-98.0); NRBC Abs Auto 0.000 X10*3/uL (0.0-0.012); NRBC Pct Auto 0.0 /100WBC (0.0-0.2); Platelet Count 258 X10*3/uL (160-400); Red Blood Count 4.72 X10*6/uL (4.60-5.80); White Blood Count 6.2 X10*3/uL (4.8-10.8)
[2025-08-11 14:09] LABS: Alanine Aminotransferase 34 U/L (0-40); Albumin Level 4.7 g/dL (3.5-5.0); Alkaline Phosphatase 76 U/L (39-117); Anion Gap 13 (12-20); Aspartate Amino Transferase 26 U/L (5-37); Blood Urea Nitrogen 11 mg/dL (9-16); Calcium 9.7 mg/dL (8.4-10.2); Carbon Dioxide 26 mmol/L (22-29); Chloride 107 mmol/L (96-108); Estimated Glomerular Filt Rate > 60; Potassium 4.5 mmol/L (3.3-5.1); Sodium 141 mmol/L (135-145); Total Protein 7.2 g/dL (6.5-8.0)
[2025-08-11 14:35] LABS: Folate 8.1 ng/mL (> or = 4.0); Vitamin B12 479 pg/mL (200-900)
[2025-08-18 15:59] LABS: Vitamin D 25-OH, D2 <4 ng/mL; Vitamin D 25-OH, D3 25 ng/mL; Vitamin D 25-OH, Total 25 ng/mL (30-100)
== END 2025-08-11 08:21 | disposition home or self-care (01) ==
LOC: HO.HKASLDS 08:20
PROVIDERS: PCP Internal Medicine; Visit Provider Psychiatry & Neurology Neurology
DX: G20.A1 Parkinson's disease without dyskinesia, without mention of fluctuations (principal); G21.2 Secondary parkinsonism due to other external agents; G47.52 REM sleep behavior disorder; G31.84 Mild cognitive impairment of uncertain or unknown etiology
CPT/HCPCS: 36415; 80053; 82306; 82607; 82746; 85025

== ENCOUNTER 2025-08-11 08:20 | Outpatient (AMB) | payer OTHER, SELFPAY ==
[2025-08-11 08:25] VITALS: BP 110/66; PULSE 72; O2SAT 98; BMI 26.0
--- NOTE | 2025-08-11 08:25 | MHC.OFFVIS ---
Vital Signs 08/11/25 08:25 Height 5 ft 4 in Weight 151 lb 8 oz BMI 26.0 BP 110/66 Blood Pressure Location Rt brachial Position Sitting Pulse 72 Pulse Source Pulse Oximeter Pulse Oximetry (%) 98 Oxygen Delivery Method Room Air Intake Visit Reasons: 3m OK per MD Intake Note: Follow up Mild cognitive impairment of uncertain or unknown etiology and Parkinson's disease Infection Control Practitioner Required: No Accompanied by: Spouse Allergies ibuprofen (From Advil) Allergy (Severe, Verified 08/11/25 08:25) swallowing alcohol Allergy (Unknown, Verified 08/11/25 08:25) Unknown aspirin (Percodan) Allergy (Unknown, Verified 08/11/25 08:25) Unknown oxycodone (Percodan) Allergy (Unknown, Verified 08/11/25 08:25) Unknown HPI Comments Details: 74y/o right handed male comes for follow up of cognitive impairment. I increased his carbidopa/levodopa 25/100 qid but may miss a dose often.He is concerned about his word finding difficulty.He shuffles more at night. History from April 2025- His feels he is worse . His slower, his gait and posture has worsened. Tremors are same. He has poor depth perception . No falls Cognition is worse His cognition fluctuates.He reports some word finding difficulty.He has trouble using his computer carbidopa/levodopa has helped with tremors. He still has tremors when he is anxious He is taking parkinsons classes at [facility] He is able to follow instructions in his [employer] classes. Initial history- He is transferring his care from Dr. Arriola. He started having short term memory issues 3-4 years ago. He had a neuropsyhc at that which was c/w Mild cognitive impairment. He was started on donepezil 10mg qd. He could not tolerate galantamine- developed tremors. He also started with leg tremors which was thought to be due to galantamine. The tremors did not resolve when he was switched to donepezil. His recent MRI - mild white matter hyperintense intensities. Neuropsych eval- [facility] Medical History Parkinson's disease without dyskinesia, without mention of fluctuations Anxiety REM behavioral disorder Parkinsonism MCI (mild cognitive impairment) CAD (coronary artery disease) Constipation IBS (irritable bowel syndrome) Combined hyperlipidemia Hypothyroidism Hernia Surgical History Hx of cataract surgery H/O heart artery stent Family History Father Diabetes Stomach cancer Heart disease Mother Dementia Sister Diabetes Social History Alcohol intake: never Patient Tobacco Use Status: Never used Tobacco Physical Exam Vital Signs: Last Vital Signs Pulse 72 08/11/25 08:25 BP 110/66 08/11/25 08:25 Pulse Ox 98 08/11/25 08:25 Oxygen Delivery Method Room Air 08/11/25 08:25 BMI result Body Mass Index 26.0 Const Orientation/consciousness: patient oriented x3 Neuro Other: mild decreased facial expression decreased blink Jose Raul LE rest tremors Cog wheel rigidity - 3+ right , left 2 + FFM and foot taps decreased jose raul R>L speech - normal Gait- stooped , small steps , decreased arm swings jose raul R>L General: patient oriented x3, moves all extremities and no focal motor deficits Cranial nerves: Yes Bilaterally intact EOM present, Yes Nystagmus not present, Yes Normal facial strength present and Yes Midline tongue present Gait exam (Neuro): Other gait observations present Motor exam (neuro): 5/5 motor strength present throughout Coordination: [id number] test normal Psych Speech and movement: Slowed movement present (Neuro) Affect: Anxious affect present Assessment & Plan Assessment & Plan (1) 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 Code(s): G20 - Parkinson's disease Category: Medical Qualifiers: 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 Qualified Code(s): 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 (2) REM behavioral disorder: Code(s): G47.52 - REM sleep behavior disorder Category: Medical (3) MCI (mild cognitive impairment): Code(s): G31.84 - Mild cognitive impairment of uncertain or unknown etiology Category: Medical (4) Parkinson's disease without dyskinesia, without mention of fluctuations: Code(s): G20.A1 - Parkinson's disease without dyskinesia, without mention of fluctuations Category: Medical Qualifiers: Fluctuating manifestations: without fluctuating manifestations Qualified Code(s): G20.A1 - Parkinson's disease without dyskinesia, without mention of fluctuations Plan Melatonin- 3-10 mgqhs Increase sinemet 25/100 1 1/2-1-1 1/2-1 HANG scan - decreased uptake in jose raul basal ganglia c/w parkinsonism donepezil 10mg qd He has h/o exposure to Trichloro ethylene Orders: Orders Vitamin B12 and Folate Today 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
--- OUTSIDE RECORDS SUMMARY | 2025-08-11 09:23 | XMS_ITS | Clinical Summary ---
Author Organization [facility] Address [address] [place] [address] Phone Care Team Providers Care Family Consumer Science Fcs Teacher Name Role Phone Calixto Abarca MD Primary Care Provider [phone] Social History Tobacco Use Types Packs/Day Years Used Date Smoking Tobacco: Never Assessed Education Answer Date Recorded Are you interested in more education? Not on symone e 03/25/2023 Are you concerned about learning? Not on file 03/25/2023 No 03/25/2023 No 03/25/2023 Digital Access Answer Date Recorded No 04/23/2023 No 04/23/2023 No 04/23/2023 Reliable internet access at home? Not on file 04/23/2023 Device with a working camera? Not on file Sex and Gender Information Value Date Recorded Sex Assigned at Not on file Legal Sex Male 2:53 PM EDT Gender Identity Not on file Sexual Orientation Not on file Plan of Treatment Health Maintenance Due Date Last Done Comments Adult Td,Tdap Booster 1950 LIPID PANEL 1950 DEPRESSION SCREENING 1962 SMOKING Hx and SMOKELESS TOB ACCO SCREENING 1963 HEPATITIS C SCREENING 1968 COLOGUARD 1995 COLONOSCOPY 1995 COLORECTAL CANCER SCREENING 1995 FIT TEST 1995 FOBT 1995 SIGMOIDOSCOPY 1995 VIRTUAL COLONOSCOPY 1995 PNEUMOCOCCAL VACCINES (50+ y ears) (1 of 1 - PCV) 2000 ZOSTER VACCINES (1 of 2) 2000 INFLUENZA VACCINE (#1) 2025 COVID-19 VACCINE (2023-2 5 season) 2025 RSV VACCINE (1 - 1-dose 75+ series) 2025 HEPATITIS A VACCINES Aged Out No long er eligible based on patient's age to complete this topic HIB VACCINES Aged Out No longer eligi ble based on patient's age to complete this topic MENINGOCOCCAL VACCINES (ACWY) Aged Out No longer eligible based on patient's age to complete this topic MENINGOCOCCAL VACCINES (B) Aged Out N o longer eligible based on patient's age to complete this topic Medical Devices Not on file Insurance PLAN PLAN HEALTH PLAN HEALTH PLAN FAMILY HEALTH [place] [address] [place] [address] [place] [address] [place] [address] HEALTH PLAN [facility] HEALTH PLAN Care Teams Family Consumer Science Fcs Teacher Relationship Specialty Start Date End Date Calixto Abarca MD [address] [place] [id number] PCP - General Internal Medicine 08/23/22 Additional Source Comments The information contained in this document represents components of the legal health record. It is not the complete legal health record.[facility]
--- OUTSIDE RECORDS SUMMARY | 2025-08-11 09:23 | XMS_ITS ---
Author Name [facility] Organization Unknown History of Medication Use Medication Directions Dispensed Refills Start Date End Date Stat cholecalciferol (VITAMIN D-3) 25 mcg (1,000 unit) tablet Take 1 tablet (1,000 Units total) by mouth 1 (one) time each day. 05/20/2025 active rosuvastatin (CRESTOR) 5 mg tablet TAKE 1 TABLET BY MOUTH DAILY 03/10/2025 active levothyroxine (SYNTHROID, LEVOTHROID) 25 mcg tablet TAKE 1 TABLET BY MOUTH DAILY 01/22/2025 active meclizine (ANTIVERT) 25 mg tablet Take 1 tablet (25 mg total) by mouth 3 (three) times a day if needed for dizziness. 01/16/2025 active difluprednate (DUREZOL) 0.05 % OPHTHalmic solution 01/08/2025 active nitroglycerin (NITROSTAT) 0.4 mg SL tablet DISSOLVE 1 TABLET UNDER TONGUE EVERY 5 MINUTES FOR UP TO 3 DOSES NEEDED FOR CHEST PAIN. IF PAIN PERSISTS DIAL 911. 12/24/2024 active carbidopa-levodopa (SINEMET) 25-100 mg per tablet Take 1 tablet by mouth. 12/13/2023 active buPROPion XL (WELLBUTRIN XL) 150 mg 24 hr tablet 08/04/2023 active donepeziL (ARICEPT) 5 mg tablet Take 1 tablet (5 mg total) by mouth. 02/21/2023 active aspirin 81 mg EC tablet Take by mouth. active polyethylene glycol 3350 (MIRALAX ORAL) Take by mouth 1 (one) time each day. active Allergies Allergen Reaction Severity Comment Documented Date Source Status LORAZEPAM confusion 02/21/2023 [facility] active IBUPROFEN ANAPHYLAXIS 10/15/2020 [facility] acti ve POLLEN EXTRACTS COUGH Seasonal Allergies 01/24/2017 [facility] active ETHANOL (ETHYL ALCOHOL) FLUSHING 07/01/2009 [facility] active DICHLOROBENZYL ALCOHOL very high fever, body pain,Rubbing Alcohol [Alc-cynara Scolymus] 01/09/2006 [facility] active OXYCODONE-ASPIRIN HEADACHE 01/09/2006 [facility] active Problems Problem Status Onset Date Problem Type Date of Resoluti on Source Prediabetes active 2023-08-09 ProblemAct [facility] Parkinsonism ([facility] V24, [facility] V28) active 2023-08-09 ProblemAct [facility] Parkinsonism ([facility] V24, [facility] V28) active 2023-08-09 ProblemAct [facility] Hyperlipidemia active 2006-01-09 ProblemAct [facility] Hypothyroidism active 2018-08-02 ProblemAct [facility] Flank pain active 2021-09-01 ProblemAct [facility] MCI (mild cognitive impairment) active 2021-11-12 ProblemAct [facility] Snoring active 2021-08-16 ProblemAct [facility] Enlarged prostate active 2023-02-21 ProblemAct [facility] Presence of stent in coronary artery in patient with coronary artery disease active 2006-01-09 ProblemAct [facility] IBS (irritable bowel syndrome) active 2012-04-25 ProblemAct [facility] Vitiligo active 2018-06-13 ProblemAct [facility] Flank pain active 2021-09-01 ProblemAct [facility] IBS (irritable bowel syndrome) active 2012-04-25 ProblemAct [facility] Immunizations Vaccine Date Source Lot Number Status COVID-19 (Pfizer/Comirnaty) 12yo and older [facility] [id number] completed COVID-19 (Pfizer/Comirnaty) 12yo and older 08/05/[address] [facility] [id number] completed Influenza, Unspecified 08/05/2024 [facility] co mpleted Influenza, Unspecified 08/05/2024 [facility] co mpleted Influenza trivalent, 0.5mL ( Fluzone High-dose) 65yo and older 08/21/2023 [facility] Influenza trivalent, 0.5mL ( Fluzone High-dose) 65yo and older 08/21/2023 [facility] [place] Pfizer (ages 12 & older) Biv alent, COVID-19 08/21/2023 [facility] completed Pfizer (ages 12 & older) Biv alent, COVID-19 08/21/2023 [facility] completed Influenza, Unspecified 10/02/2022 [facility] co mpleted Influenza, Unspecified 10/02/2022 [facility] co mpleted Pfizer SARS-CoV-2 COVID-19, mRNA, LNP-S, preservative free 06/02/2022 [facility] completed Pfizer SARS-CoV-2 COVID-19, mRNA, LNP-S, preservative free 06/02/2022 [facility] completed Pfizer SARS-CoV-2 COVID-19, mRNA, LNP-S, preservative free 02/24/2022 [facility] completed Pfizer SARS-CoV-2 COVID-19, mRNA, LNP-S, preservative free 02/24/2022 [facility] completed Influenza, Unspecified 09/06/2021 [facility] co mpleted Influenza, Unspecified 09/06/2021 [facility] co mpleted Pfizer SARS-CoV-2 COVID-19, mRNA, LNP-S, preservative free 08/23/2021 [facility] [id number] completed Pfizer SARS-CoV-2 COVID-19, mRNA, LNP-S, preservative free 08/23/2021 [facility] [id number] completed Pfizer SARS-CoV-2 COVID-19, mRNA, LNP-S, preservative free 01/21/2021 [facility] [id number] completed Pfizer SARS-CoV-2 COVID-19, mRNA, LNP-S, preservative free 01/21/2021 [facility] [id number] completed Pfizer SARS-CoV-2 COVID-19, mRNA, LNP-S, preservative free 12/31/2020 [facility] [id number] completed [employer] SARS-CoV-2 COVID-19, mRNA, LNP-S, preservative free 12/31/2020 [facility] [id number] completed Zoster recombinant (Shingrix ) 19yo and older 12/17/2020 [id number] completed Zoster recombinant (Shingrix ) 19yo and older 12/17/2020 [facility] [id number] completed Influenza trivalent, 0.5mL ( Fluzone High-dose) 65yo and older 08/14/2020 [facility] comple villa Influenza trivalent, 0.5mL ( Fluzone High-dose) 65yo and older 08/14/2020 [facility] comple villa Zoster recombinant (Shingrix ) 19yo and older 07/16/2020 [facility] completed Zoster recombinant (Shingrix ) 19yo and older 07/16/2020 [facility] completed Pneumococcal polysaccharide 23 valent (Pneumovax 23) 2yo and older 01/08/2020 [facility] [id number] com pleted Pneumococcal polysaccharide 23 valent (Pneumovax 23) 2yo and older 01/08/2020 [facility] [id number] com pleted Influenza trivalent, 0.5mL ( Fluzone High-dose) 65yo and older 08/07/2019 [facility] [id number] comple villa Influenza trivalent, 0.5mL ( Fluzone High-dose) 65yo and older 08/07/2019 [facility] [id number] comple villa Td Tetanus diptheria (Tdvax) 7yo and older 05/03/2019 [facility] [id number] completed Td Tetanus diptheria (Tdvax) 7yo and older 05/03/2019 [facility] [id number] completed Influenza trivalent, 0.5mL ( Fluzone High-dose) 65yo and older 08/08/2018 [facility] [id number] comple villa Influenza trivalent, 0.5mL ( Fluzone High-dose) 65yo and older 08/08/2018 [facility] [id number] comple villa Influenza trivalent, 0.5mL ( Fluzone High-dose) 65yo and older 08/22/2017 [facility] [id number] comple villa Influenza trivalent, 0.5mL ( Fluzone High-dose) 65yo and older 08/22/2017 [facility] [id number] comple villa Influenza trivalent, 0.5mL ( Fluzone High-dose) 65yo and older 08/16/2016 [facility] [id number] comple villa Influenza trivalent, 0.5mL ( Fluzone High-dose) 65yo and older 08/16/2016 [facility] [id number] comple villa Pneumococcal conjugate 13 va lent (Prevnar 13, PCV13) 2mo and older 08/16/2016 [facility] [id number] complet ed Pneumococcal conjugate 13 va lent (Prevnar 13, PCV13) 2mo and older 08/16/2016 [facility] [id number] complet ed Influenza trivalent, with pr eservative (Fluzone; Afluria) 6mo and older 08/10/2015 [facility] [id number] completed Influenza trivalent, with pr eservative (Fluzone; Afluria) 6mo and older 08/10/2015 [facility] [id number] completed Pneumococcal polysaccharide 23 valent (Pneumovax 23) 2yo and older 11/17/2014 [facility] [id number] com pleted Pneumococcal polysaccharide 23 valent (Pneumovax 23) 2yo and older 11/17/2014 [facility] [id number] com pleted Influenza trivalent, with pr eservative (Fluzone; Afluria) 6mo and older 08/13/2014 [facility] completed Influenza trivalent, with pr eservative (Fluzone; Afluria) 6mo and older 08/13/2014 [facility] completed Influenza trivalent, with pr eservative (Fluzone; Afluria) 6mo and older 08/30/2013 [facility] [id number] completed Influenza trivalent, with pr eservative (Fluzone; Afluria) 6mo and older 08/30/2013 [facility] [id number] completed Influenza trivalent, with pr eservative (Fluzone; Afluria) 6mo and older 08/20/2012 [facility] [id number] completed Influenza trivalent, with pr eservative (Fluzone; Afluria) 6mo and older 08/20/2012 [facility] [id number] completed Zoster Live 04/26/2012 [facility] [id number] completed Zoster Live 04/26/2012 [facility] [id number] completed Influenza trivalent, with pr eservative (Fluzone; Afluria) 6mo and older 08/16/2011 [facility] [id number] completed Influenza trivalent, with pr eservative (Fluzone; Afluria) 6mo and older 08/16/2011 [facility] [id number] completed Influenza trivalent, with pr eservative (Fluzone; Afluria) 6mo and older 08/27/2010 [facility] completed Influenza trivalent, with pr eservative (Fluzone; Afluria) 6mo and older 08/27/2010 [facility] completed H1N1 Inj Preservative Free 11/23/2009 [facility] [id number] completed H1N1 Inj Preservative Free 11/23/2009 [facility] [id number] completed Influenza trivalent, with pr eservative (Fluzone; Afluria) 6mo and older 08/13/2009 [facility] [id number] completed Influenza trivalent, with pr eservative (Fluzone; Afluria) 6mo and older 08/13/2009 [facility] [id number] completed Tdap Tetanus diptheria acell ular pertussis (Boostrix; Adacel) 7yo and older 03/16/2009 [facility] [id number] completed Tdap Tetanus diptheria acell ular pertussis (Boostrix; Adacel) 7yo and older 03/16/2009 [facility] [id number] completed Influenza trivalent, with pr eservative (Fluzone; Afluria) 6mo and older 10/03/2007 [facility] [id number] completed Influenza trivalent, with pr eservative (Fluzone; Afluria) 6mo and older 10/03/2007 [facility] [id number] completed Influenza trivalent, with pr eservative (Fluzone; Afluria) 6mo and older 09/30/2005 [facility]DA completed Influenza trivalent, with pr eservative (Fluzone; Afluria) 6mo and older 09/30/2005 [facility] completed Td Tetanus diptheria (Tdvax) 7yo and older 08/27/1999 [facility]_T [facility] completed Td Tetanus diptheria (Tdvax) 7yo and older 08/27/1999 [facility]_T [facility] completed Encounters Encounter Type Encounter Reason Primary Diagnosis Location Date Ambulatory Abnormal findings on diagnostic imaging of skull and head, not elsewhere classified Abnormal findings on diagnostic imaging of skull and head, not elsewhere classified [facility] 06/03/2025 Care Team Organization Name Specialty Phone Email Start Date End Da te [facility] 06/03/2025 [facility] 06/03/2025
--- OUTSIDE RECORDS SUMMARY | 2025-08-11 09:23 | XMS_ITS | Encounter Summary ---
Author Organization [facility] Address [address] [place] [address] Care Team Providers Care Shipping And Receiving Name Role Phone Cesilia Mccollum MD Primary Care Provider [phone] Reason for Visit * Reason Onset Date Comments needs a BMP ordered 07/07/2025 Encounter Details Date Type Department Care Team (Late st Contact Info) Description 07/07/2025 Telephone [facility] - [address] [place] [address] Thang Jimenez MD [address] [place] [phone] Social History Tobacco Use Types Packs/Day Years Used Date Smoking Tobacco: Never Smokeless Tobacco: Never Alcohol Use Standard Drinks/Week Comments No 0 (1 standard drink = 0.6 oz pur e alcohol) Sex and Gender Information Value Date Recorded Sex Assigned at Not on file Legal Sex Male 1:25 AM EST Gender Identity Not on file Sexual Orientation Not on file documented as of this encounter Progress Notes * Maria Alejandra Hernandez - 07/07/2025 12:20 PM EDT Catalina from [facility] radiology called and stated that this patient needed a BMP blood test before having his imaging there tomorrow. Please order BMP. Lak 07/07/2025 documented in this encounter Plan of Treatment Upcoming Encounters Date Type Department Care Team (Late Contact Info) Description 08/20/2025 1:00 PM EDT [facility] [address] [place], [place] [phone] Cesilia Mccollum MD [address] [place], [place] 11/10/2025 2:40 PM EST Office Visit [facility] - [address] [facility] [address] [place] [phone] Radha Claire NP [address] [place] [address] [place] [address] documented as of this encounter Visit Diagnoses Not on filedocumented in this encounter Care Teams Shipping And Receiving Relationship Specialty Start Date End Date Cesilia Mccollum MD [address] [place] [address] PCP - General Internal Medicine 06/19/25 documented as of this encounter
--- OUTSIDE RECORDS SUMMARY | 2025-08-11 09:23 | XMS_ITS | Clinical Summary ---
Author Organization [facility] Address [address] [place] [phone] Phone Care Team Providers Care Counselor [employer] Name Role Phone Cesilia Mccollum MD Primary Care Provider [phone] Allergies Active Allergy Reactions Criticality Noted Date Comments Dichlorobenzyl Alcohol 01/09/2006 Rubbing Alcohol [Alc-cynara Scolymus] very high fever, body pain Ethanol (Ethyl Alcohol) Flushing Medium 07/01/2009 Ibuprofen Anaphylaxis High 10/15/2020 Lorazepam 02/21/2023 confusion Oxycodone-Aspirin Headache 01/09/2006 Pollen Extracts Cough 01/24/2017 Seasonal Allergies Medications carbidopa-levo dopa (SINEMET) 25-100 mg per tablet Take 1 tablet by mouth. 4 Active buPROPion XL (WELLBUTRIN XL) 150 mg 24 hr tablet 3 Active donepeziL (ARICEPT) 5 mg tablet Take 1 tablet (5 mg total) by mouth. 3 Active aspirin 81 mg EC tablet Take by mouth. Active polyethylene glycol 3350 (MIRALAX ORAL) Take by mouth 1 (one) time each day. Active nitroglycerin (NITROSTAT) 0.4 mg SL tablet DISSOLVE 1 TABLET UNDER TONGUE EVERY 5 MINUTES FOR UP TO 3 DOSES NEEDED FOR CHEST PAIN. IF PAIN PERSISTS DIAL 911. 75 tablet 5 Active difluprednate (DUREZOL) 0.05 % OPHTHalmic solution 5 Active meclizine (ANTIVERT) 25 mg tablet Take 1 tablet (25 mg total) by mouth 3 (three) times a day if needed for dizziness. 14 tablet 5 Active cholecalcifero l (VITAMIN D-3) 25 mcg (1,000 unit) tablet Take 1 tablet (1,000 Units total) by mouth 1 (one) time each day. 90 each 1 5 025 Active levothyroxine (SYNTHROID, LEVOTHROID) 25 mcg tablet TAKE 1 TABLET BY MOUTH DAILY 90 tablet 5 Active rosuvastatin (CRESTOR) 5 mg tablet TAKE 1 TABLET BY MOUTH DAILY 90 tablet 5 Active levothyroxine (SYNTHROID, LEVOTHROID) 25 mcg tablet TAKE 1 TABLET BY MOUTH DAILY 90 tablet 1 5 025 Discontinued rosuvastatin (CRESTOR) 5 mg tablet TAKE 1 TABLET BY MOUTH DAILY 90 tablet 5 025 Discontinued Active Problems Problem Noted Date Diagnosed Date Parkinsonism ([facility] V24, [facility] V28) 08/09/20 23 Assessment & Plan (04/01/2025 6:36 PM EDT): He has scheduled appointment with neurology already booked for his history of Parkinson's. Prediabetes 08/09/2023 Assessment & Plan (04/01/2025 6:36 PM EDT): Diabetic diet discussed. Will monitor A1c. Orders: Hemoglobin A1c; Future Enlarged prostate 02/21/2023 MCI (mild cognitive impairment) 11/12/2021 Overview (01/31/2024): Initially consulted with Dr. Arriola, question of Lewy body disease versus Alzheimer's disease with parkinsonism. Then transferred to Dr. Heart; no firm diagnosis. Flank pain 09/01/2021 Snoring 08/16/2021 Overview (01/31/2024): 07/2021 Polysomnogram did not reveal sleep apnea or nocturnal hypoxia. Hypothyroidism 08/02/2018 Assessment & Plan (04/01/2025 6:36 PM EDT): Continue current room of levothyroxine for hypothyroidism. Vitiligo 06/13/2018 IBS (irritable bowel syndrome) 04/25/2012 Hyperlipidemia 01/09/2006 Assessment & Plan (04/01/2025 6:36 PM EDT): Patient follow low-cholesterol diet. Continue rosuvastatin. Orders: Lipid panel with reflex to direct LDL; Future Hepatic function panel; Future Presence of stent in coronar y artery in patient with coronary artery disease 01/09/2006 Overview (01/31/2024): Neg nuclear MIBI 08/15/18 at [place]. UGI 2006: hiatal hernia. Repeat negative nuclear stress test on 05/05/2020 Encounters Date Type Department Care Team Description 07/08/2025 2:01 PM EDT - 07/08/2025 11:59 PM EDT Hospital Encounter [facility] CT Scan [address] [place] [address] Abnormal MRI of head Discharge Disposition: Home or Self Care 07/07/2025 Telephone Neurosurgery - [place] [address] [place] [address] [address] [place] [address] Thang Jimenez MD 06/03/2025 8:00 AM EDT Consult Neurosurgery [address] [place] [address] Thang Jimenez MD Abnormal MRI of head 05/23/2025 [facility] [address] [place] [phone] Calixto Abarca MD from Last 3 Months Immunizations Name Administration Dates Next Due COVID-19 (Pfizer/Comirnaty) 12yo and older 08/05/2024 H1N1 Inj Preservative Free 11/23/2009 Influenza trivalent, 0.5mL ( Fluzone High-dose) 65yo and older 08/21/2023,08/14/2020,08/07/2019,08/08,08/22/2017,08/16/2016 Influenza trivalent, with pr eservative (Fluzone; Afluria) 6mo and older 08/10/2015,08/13/2014,08/30/2013,08/20,08/16/2011,08/27/2010,08/13/2009 ,10/03/2007,09/30/2005 Influenza, Unspecified 08/05/2024,10/02/2022,09/2021 Pfizer (ages 12 & older) Biv alent, COVID-19 08/21/2023 Pfizer SARS-CoV-2 COVID-19, mRNA, LNP-S, preservative free 06/02/2022,02/24/2022,08/23/2021,01/21,12/31/2020 Pneumococcal conjugate 13 va lent (Prevnar 13, PCV13) 2mo and older 08/16/2016 Pneumococcal polysaccharide 23 valent (Pneumovax 23) 2yo and older 01/08/2020,11/17/2014 Td Tetanus diptheria (Tdvax) 7yo and older 05/03/2019,08/27/1999 Tdap Tetanus diptheria acell ular pertussis (Boostrix; Adacel) 7yo and older 03/16/2009 Zoster Live 04/26/2012 Zoster recombinant (Shingrix ) 19yo and older 12/17/2020,07/16/2020 Surgical History Surgery Date Site/Laterality Comments CORONARY STENT PLACEMENT 03/11/1999 PROCEDURE: STENT, CORONARY, [place]; COMMENT: 2 metal stents circumflex, neg carotids ' CORONARY STENT PLACEMENT 10/30/2014 PROCEDURE: STENT, CORONARY, [place]; COMMENT: stent for 90% RCA lesion COLONOSCOPY 10/04/2000 PROCEDURE: HISTORICAL COLONOSCOPY; COMMENT: negative COLONOSCOPY 01/08/2016 PROCEDURE: HISTORICAL COLONOSCOPY; COMMENT: 4 mm tubular adenoma transverse colon. COLONOSCOPY 12/10/2010 PROCEDURE: HISTORICAL COLONOSCOPY; COMMENT: 4 mm sigmoid colon tubular adenoma. UPPER GASTROINTESTINAL ENDOSCOPY 07/02/2009 PROCEDURE: [facility] UPPER GI ENDOSCOPY PERFORMED; COMMENT: 3 cm hiatus hernia COLONOSCOPY 07/27/2020 PROCEDURE: HISTORICAL COLONOSCOPY; COMMENT: 5 mm rectal polyp: Tubular adenoma. ESOPHAGOGASTRODUODENOSCOPY 05/12/2021 PROCEDURE: [place] EGD TRANSORAL BIOPSY SINGLE/MULTIPLE; COMMENT: Small hiatal hernia, probable minimal esophagitis, biopsies: Normal/negative. HERNIA REPAIR PROCEDURE: HISTORICAL HERNIA REPAIR/ING; COMMENT: x4 Medical History Medical History Date Comments Other and unspecified hyperlipidemia 01/09/2006 DX:Other and unspecified hyperlipidemia Coronary atherosclerosis of unspecified type of vessel, [place] or graft 01/09/2006 DX:Coronary atherosclerosis of unspecified type of vessel, [place] or graft Abdominal pain, epigastric 07/02/2009 DX:Ab dominal pain, epigastric Diet-controlled type 2 diabe dread mellitus ([facility] V24, [facility] V28) 07/03/2013 DX:Diet-controlled type 2 diabetes mellitus ([facility]) Vitiligo 06/13/2018 DX:Vitiligo Hypothyroidism 08/02/2018 DX:Hypothyroidis m Esophageal reflux DX:Esophageal reflux Mild cognitive impairment DX:Mil d cognitive impairment Seasonal allergies DX:Seasonal a llergies Hx of inguinal hernia surgery 04/03/2023 DX :Hx of inguinal hernia surgery Parkinsonism ([facility] V24, [facility] [place] V28) 08/09/2023 DX:Parkinsonism ([facility]) Wrist fracture DX:Wrist fractur e; COMMENT: right Family History Medical History Relation Name Comments Colon polyps Father dx > 60 Coronary artery disease Father Diabetes Father Stomach cancer Father dx > 60 Dementia Mother alzheimers Diabetes Sister Hyperlipidemia Son 1 Mental illness Son 1 anxiety/ depr ession Hyperlipidemia Son 2 Hyperlipidemia Son 3 Colon cancer Neg Hx Relation Name Status Comments Father (Age 85) 2005 of stomach CA & hx of colon polyps age 60s, diabetes, HTN Mother (Age 93) neck pain Sister Alive healthy Son 1 Son 2 Son 3 Son 4 Alive Son 5 Alive Social History Tobacco Use Types Packs/Day Years Used Date Smoking Tobacco: Never Smokeless Tobacco: Never Alcohol Use Standard Drinks/Week Comments No 0 (1 standard drink = 0.6 oz pur e alcohol) Sex and Gender Information Value Date Recorded Sex Assigned at Not on file Legal Sex Male 1:25 AM EST Gender Identity Not on file Sexual Orientation Not on file Obstetrics History Last Filed Vital Signs Vital Sign Reading Time Taken Comments Blood Pressure 110/58 04/01/2025 2:45 PM EDT Pulse 66 04/01/2025 2:45 PM EDT Temperature 36.3 C (97.3 F) 02/14/2025 3:26 PM EDT Respiratory Rate - - Oxygen Saturation 97% 02/14/2025 3:26 PM EDT Inhaled Oxygen Concentration - - Weight 69.2 kg (152 lb 9.6 oz) 04/01/2025 2:45 P M EDT Height 153.7 cm (5' 0.5 ) 04/01/2025 2:45 PM EDT Body Mass Index 29.31 04/01/2025 2:45 PM EDT Plan of Treatment Upcoming Encounters Date Type Department Care Team (Late st Contact Info) Description 08/20/2025 1:00 PM EDT Office Visit Internal Medicine - [facility] [address] [place] [address] Cesilia Mccollum MD [address] [place], [place] 11/10/2025 2:40 PM EST Office Visit [facility] [address] [facility] [address] [place] [address] Radha Claire NP [address] [place] [address] Dr [address] [place] [phone] Health Maintenance Due Date Last Done Comments IPV Vaccines (2 of 3 - Adult catch-up series) 07/25/1983 06/27/1983 Hepatitis B Vaccines (2 of 3 - 19+ 3-dose series) 11/28/1998 10/31/1998 Falls Risk Assessment 11/05/2022 Social Influencers of Health Screening 11/05/2022 Depression Screening 11/27/2024 COVID-19 Vaccine (9 - Pfizer risk season) 2025 08/05/2024, 08/21/2023, 08/03/2022, Additional history exists Influenza Vaccine (#1) 2025 , 08/21/2023, 10/02/2022, Additional history exists Hypertension/CHF/CAD Annual BMP Blood Test 07/08/2026 07/08/2025, 11/22/2024, 08/16/2024 DTaP,Tdap,and Td Vaccines (6 - Td or Tdap) 05/03/2029 05/03/2019, 03/16/2009, 08/09/2003, Additional history exists Cholesterol Screening (Lipid Panel) 04/04/2030 04/04/2025, 04/18/2024, 04/18/2024 Colorectal Cancer Screening: Colonoscopy 07/27/2030 07/27/2020, 07/27/2020 Hepatitis A Vaccines Aged Out 07/22/2000, 12/04/19 00 No longer eligible based on patient's age to complete this topic Hepatitis C Screening Completed 05/23/2011, 011 Pneumococcal Vaccine: 50+ Years Completed 01/08/2020, 08/16/2016, 11/17/2014 Zoster Vaccines Completed 12/17/2020, 06/28, 04/26/2012 RSV Immunization Adult Patients Completed 10/16/2023 HIB Vaccines Aged Out No longer eligi ble based on patient's age to complete this topic HPV Vaccines Aged Out No longer eligi ble based on patient's age to complete this topic MMR Vaccines Aged Out No longer eligi ble based on patient's age to complete this topic Meningococcal ACWY Vaccine Aged Out N o longer eligible based on patient's age to complete this topic Meningococcal B Vaccine Aged Out No l onger eligible based on patient's age to complete this topic RSV Immunization Patients Under 20 months Aged Out No longer eligible based on patient's age to complete this topic Varicella Vaccines Aged Out No longer eligible based on patient's age to complete this topic Procedures Procedure Name Priority Date/Time Associated Diagnosis Comments PROSTATE SPECIFIC ANTIGEN SCREEN Routine 07/21/2025 9:01 AM EDT Screening for prostate cancer CT ANGIO HEAD WO AND/OR W CONTRAST Routine 07/08/2025 2:17 PM EDT Abnormal MRI of head BASIC METABOLIC PANEL STAT 07/08/2025 12:20 PM EDT Pre-operative laboratory examination LIPID PANEL WITH REFLEX TO DIRECT LDL Routine 04/04/2025 10:15 AM EDT Hyperlipidemia, unspecified hyperlipidemia type COLONOSCOPY Routine 07/27/2020 HEPATITIS C SCREENING Routine 05/23/2011 from Last 3 Months or Most Recently Relevant to Health Maintenance Results * Prostate specific antigen screen (07/21/2025 9:01 AM EDT) PSA 3.05 0.00 - 4.00 ng/mL LAB CHEMISTRY METHOD 07/21/2025 12:49 PM EDT [facility] Blood Venous blood specimen / Unknown Venipuncture / Unknown 07/21/2025 9:01 AM EDT 07/21/2025 9:01 AM EDT Narrative [facility] - 07/21/2025 12:49 PM EDT The Siemens Advia Qoofaur Chemiluminescent Immunoassay is used. Results obtained with different assay methods or kits cannot be used interchangeably. Results cannot be interpreted as absolute evidence of the presence or absence of malignant disease. Calixto Abarca MD LAB BLOOD ORDERABLES Bibiana clark Result [facility] [address] [place] [address], * CT Angio Head wo and/or w Contrast (07/08/2025 2:17 PM EDT) Anatomical Region Laterality Modality Head and Neck Computed Tomogra phy 07/14/2025 11:3 8 AM EDT Impressions 07/14/2025 11:[address] angiogram of the [place]. No aneurysm or evidence of vascular malformation. -------- FINAL REPORT -------- Dictated By: Kumar Garcia Dictated Date: 07/14/2025 11:38 ET Assigned Physician: Kumar Garcia Reviewed and Electronically Signed By: Kumar Garcia Signed Date: 07/14/2025 11:57 ET Workstation ID: [id number] Transcribed By: Self Edit Transcribed Date: 07/14/2025 11:38 ET Narrative 07/14/2025 11:57 AM EDT PROCEDURE: Noncontrast head CT and CT angiogram of the [place]. HISTORY: Cerebral aneurysm, follow-up. Pulsatile tinnitus. COMPARISON: MRI of the brain dated 03/27/2025. TECHNIQUE: Noncontrast head CT followed by contrast-enhanced CT angiogram of the [place], with coronal and sagittal reformats. IV contrast dose: 90 mL ISOVUE-370. Dose length product: 1265 mGy-cm. FINDINGS: Brain: No hemorrhage, edema, mass, or extra-axial fluid collection. No CT evidence of an acute large vessel infarct. Ventricles and sulci are age commensurate. Incidentally noted bilateral rim calcified choroid plexus cysts. Patchy hypoattenuation in the supratentorial white matter suggestive of mild chronic microvascular ischemic disease. CTA: The right vertebral artery is dominant. The left vertebral artery is diminutive above the PICA origin. Visualized portions of both vertebral arteries are widely patent. The basilar artery is widely patent. Both internal carotid arteries are widely patent. There is persistent circulation on the right. No visible posterior communicating artery on the left. Trace calcified atherosclerotic plaque in the right supraclinoid internal carotid artery. Small caliber right A1 segment. The anterior and middle cerebral arteries are widely patent. No aneurysm. No findings to suggest a vascular malformation. The dural venous sinuses are patent. Orbits: Lens implants. Sinuses/mastoids: Small mucous retention cysts in the maxillary antra. Calvarium: Normal. Other: The skull base soft tissues are normal. Procedure Note Kumar Garcia MD - 07/14/2025 PROCEDURE: Noncontrast head CT and CT angiogram of the [place]. HISTORY: Cerebral aneurysm, follow-up. Pulsatile tinnitus. COMPARISON: MRI of the brain dated 03/27/2025. TECHNIQUE: Noncontrast head CT followed by contrast-enhanced CT angiogramof the [place], with coronal and sagittal reformats. IV contrast dose: 90 mL ISOVUE-370. Dose length product: 1265 mGy-cm. FINDINGS: Brain: No hemorrhage, edema, mass, or extra-axial fluid collection. No CTevidence of an acute large vessel infarct. Ventricles and sulci are agecommensurate. Incidentally noted bilateral rim calcified choroid plexuscysts. Patchy hypoattenuation in the supratentorial white mattersuggestive of mild chronic microvascular ischemic disease. CTA: The right vertebral artery is dominant. The left vertebral artery isdiminutive above the PICA origin. Visualized portions of both vertebralarteries are widely patent. The basilar artery is widely patent. Both internal carotid arteries are widely patent. There is persistentfetal circulation on the right. No visible posterior communicating arteryon the left. Trace calcified atherosclerotic plaque in the right supraclinoid internalcarotid artery. Small caliber right A1 segment. The anterior and middlecerebral arteries are widely patent. No aneurysm. No findings to suggest a vascular malformation. The dural venous sinuses are patent. Orbits: Lens implants. Sinuses/mastoids: Small mucous retention cysts in the maxillary antra. Calvarium: Normal. Other: The skull base soft tissues are normal. IMPRESSION: Normal CT angiogram of the [place]. No aneurysm or evidence ofvascular malformation. -------- FINAL REPORT -------- Dictated By: Kumar Garcia Dictated Date: 07/14/2025 11:38 ET Assigned Physician: Kumar Garcia Reviewed and Electronically Signed By: Kumar Garcia Signed Date: 07/14/2025 11:57 ET Workstation ID: [id number] Transcribed By: Self Edit Transcribed Date: 07/14/2025 11:38 ET Thang Roy MD IM CT PROCEDURES Final R esult * Basic metabolic panel (07/08/2025 12:20 PM EDT) Sodium 135 133 - 145 mmol/L LAB CHEMISTRY METHOD 07/08/2025 12:55 PM EDT [facility] Potassium 4.3 3.5 - 5.5 mmol/L LAB CHEMISTRY METHOD 07/08/2025 12:55 PM EDT [facility] Chloride 103 96 - 110 mmol/L LAB CHEMISTRY METHOD 07/08/2025 12:55 PM EDT [facility] CO2 28 21 - 32 mmol/L LAB CHEMISTRY METHOD 07/08/2025 12:55 PM EDT [facility] Anion Gap 4 3 - 11 LAB CHEMISTRY METHOD 07/08/2025 12:55 PM EDT [facility] Glucose 91 70 - 100 mg/dL LAB CHEMISTRY METHOD 07/08/2025 12:55 PM T [facility] BUN 12 5 - 25 mg/dL LAB CHEMISTRY METHOD 07/08/2025 12:55 PM EDT [facility] Creatinine 0.88 0.70 - 1.30 mg/dL LAB CHEMISTRY METHOD 07/08/2025 12:55 PM EDT [facility] eGFR 90 >=60 mL/min/1. 73m2 LAB CHEMISTRY METHOD 07/08/2025 12:55 PM T [facility] Comment:Calculation based on the Chronic Kidney Disease Epidemiology Collaboration (CKD-EPI) equation refit without adjustment for race. BUN/Creatinine Ratio 13.6 LAB CHEMISTRY METHOD 07/08/2025 12:55 PM [facility] Calcium 9.3 8.5 - 10.5 mg/dL LAB CHEMISTRY METHOD 07/08/2025 12:55 PM [facility] Blood Venous blood specimen / Unknown Venipuncture / Unknown 07/08/2025 12:20 PM EDT 07/08/2025 12:34 PM EDT Sherley Parr NP LAB BLOOD ORDERABLES Final Result [facility] [address] [place] [address], * Lipid panel with reflex to direct LDL (04/04/2025 10:15 AM EDT) Cholesterol 163 0 - 200 mg/dL LAB CHEMISTRY METHOD 04/04/2025 1:15 PM EDT [facility] Triglycerides 71 0 - 150 mg/dL LAB CHEMISTRY METHOD 04/04/2025 1:15 PM EDT [facility] HDL 71 >=40 mg/dL LAB CHEMISTRY METHOD 04/04/2025 1:15 PM EDT [facility] LDL Calculated 78 0 - 100 mg/dL LAB CHEMISTRY METHOD 04/04/2025 1:15 PM EDT [facility] VLDL Cholesterol Daniele 14.2 mg/dL LAB CHEMISTRY METHOD 04/04/2025 1:15 PM EDT [facility] Non HDL Chol. (LDL+VLDL) 92 <145 mg/dL LAB CHEMISTRY METHOD 04/04/2025 1:15 PM EDT [facility] Chol/HDL Ratio 2.3 0.0 - 4.4 LAB CHEMISTRY METHOD 04/04/2025 1:15 PM EDT [facility] Blood Venous blood specimen / Unknown Venipuncture / Unknown 04/04/2025 10:15 AM EDT 04/04/2025 10:15 AM EDT Calixto Abarca MD LAB BLOOD ORDERABLES Bibiana l Result [facility] [address] [place] [address], * Colonoscopy (07/27/2020) Pathologist [facility] Colonoscopy No Interpretation , Abstracted Anatomical Region Laterality Modality Other Historical Provider HEALTH MAINTENANCE Final Result * Hepatitis C Screening (05/23/2011) Pathologist [facility] Hepatitis C Screening Abstracted Historical Provider HEALTH MAINTENANCE Final Result from Last 3 Months or Most Recently Relevant to Health Maintenance Insurance [facility] Care Teams Counselor Nurses' Association Relationship Specialty Start Date End Date Ces[facility] [address] [facility] [phone] P[facility] - General Internal Medicine 06/19/25
== END 2025-08-11 09:03 | disposition home or self-care (01) ==
LOC: HO.HSMS 08:20
PROVIDERS: PCP Internal Medicine; Visit Provider Psychiatry & Neurology Neurology
DX: G21.2 Secondary parkinsonism due to other external agents (principal); G47.52 REM sleep behavior disorder; G31.84 Mild cognitive impairment of uncertain or unknown etiology; G20.A1 Parkinson's disease without dyskinesia, without mention of fluctuations
CPT/HCPCS: 99214